=== PATIENT | male | born 1990 | race Caucasian/White ===

== ENCOUNTER 2018-10-01 13:42 | Emergency (ER) | payer OTHER ==
[~2018-10-01] VITALS: Ht 177.8 cm; Wt 85.7 kg
[2018-10-01 13:45] VITALS: BP 145/70
--- NOTE | 2018-10-01 13:49 | NUR ---
PATIENT AMBULATED TO ER BED 10.
--- NOTE | 2018-10-01 13:57 | NUR ---
PT C/O INGROWN TOENAIL TO L GREAT TOE X3 MONTHS. REPORTS PAIN AND PUS. TOOK TYLENOL, TRAMADOL, ADVIL WITH NO RELIEF. PT HAS HAD ISSUE BEFORE ON SAME NAIL . DENIES N/V/D; SKIN IS PINK/WARM/DRY; AAOX4 WITH EVEN AND STEADY GAIT; LUNGS CLEAR BL; HR EVEN AND REGULAR; PT DENIES ANY FEVER, CP, SOB, OR COUGH AT THIS TIME; PATIENT STATES PAIN OF 8/10 AT THIS TIME; VSS; PATIENT POSITIONED FOR COMFORT; HOB ELEVATED; BEDRAILS UP X2; BED DOWN. ER MD MADE AWARE OF PT STATUS.
--- NOTE | 2018-10-01 14:33 | NUR ---
PATIENT LEFT WITHOUT BEING SEEN BY DR. GARRETT. NO FURTHER CARE PROVIDED FOR PATIENT.
== END 2018-10-01 14:30 | disposition left against medical advice (07) ==
LOC: MED 13:42
DX: L60.0 Ingrowing nail (principal); Z53.21 Procedure and treatment not carried out due to patient leaving prior to being seen by health care provider

== ENCOUNTER 2018-10-03 14:57 | Emergency (ER) | payer OTHER ==
[~2018-10-03] VITALS: Ht 177.8 cm; Wt 86.7 kg
[2018-10-03 15:07] VITALS: BP 125/78
--- NOTE | 2018-10-03 15:39 | NUR ---
Patient ambulated to bed 5
--- NOTE | 2018-10-03 15:54 | NUR ---
PT BIB SELF C/O INGROWN TOENAIL ON LT 1ST TOE X2 MONTHS. PT REPORTS INTERMITENT SHARP PAIN AT 8/10 THAT INCREASES WITH WALKING AND PRESSURE. PT REPORTS THICK WHITE DISCHARGE. ERYTHEMA AND EDEMA PRESENT ON TOE. VSS. ER MD TO SEE PT. MEDHX:DENIES RX:DENIES
[2018-10-03] MEDS ORDERED: KETOROLAC 60 MG/2 ML VIAL IM ONE (16:25)
[2018-10-03] MEDS ORDERED: cefTRIAXone 1,000 MG in LIDOCAINE 1% ***ER ONLY *** 2.1 ML IM ONE (16:25)
[2018-10-03] MEDS ORDERED: NEOMYCIN/POLYMYXIN/BACITRACIN 0.9 GM/1 PKT TP ONE (16:25)
[2018-10-03] MEDS ORDERED: cefTRIAXone 1,000 MG VIAL ONE (17:03)
[2018-10-03] MEDS ORDERED: LIDOCAINE 1% 500 MG/50 ML VIAL ONE (17:16)
[2018-10-03] MEDS ORDERED: LIDOCAINE 2% 1000 MG/50 ML VIAL INJ ONE (17:16)
--- NOTE | 2018-10-03 17:21 | NUR ---
IM MEDS GIVEN-NADR AT THIS TIME
[2018-10-03 18:00] VITALS: BP 122/68
--- NOTE | 2018-10-03 18:25 | NUR ---
Patient discharged with v/s stable. Written and verbal after care instructions given and explained. Patient alert, oriented and verbalized understanding of instructions. Ambulatory with steady gait. All questions addressed prior to discharge. ID band removed. Patient advised to follow up with PMD. Rx of TRAMADOL,CLINDAMYCIN given. Patient educated on indication of medication including possible reaction and side effects. Opportunity to ask questions provided and answered. PT LEFT DISCHAGRE INFO AND RX AT BEDSIDE. I CALLED, PT WILL COME BACK TO [facility] IN 3-4 HOURS.
== END 2018-10-03 18:25 | disposition home or self-care (01) ==
LOC: MED 14:57
DX: L60.0 Ingrowing nail (principal); L08.9 Local infection of the skin and subcutaneous tissue, unspecified
CPT/HCPCS: 96372; 99283; J0696; J1885; J2001; C1758